=== PATIENT | female | born 1975 | race Two or more races ===

== ENCOUNTER 2024-08-21 05:16 | Emergency (ER) | payer SELFPAY ==
[~2024-08-21] VITALS: Ht 160 cm; Wt 59.0 kg
[2024-08-21 05:16] VITALS: BP 142/76; PULSE 84; RESP 18; O2SAT 98
[2024-08-21] MEDS: LORazepam 0.5 MG TAB PO ONE (06:54)
== END 2024-08-21 08:08 | disposition left against medical advice (07) ==
LOC: ER 05:16 → EDBD 05:16 → ER 08:08
DX: F41.9 Anxiety disorder, unspecified (principal); Z53.21 Procedure and treatment not carried out due to patient leaving prior to being seen by health care provider